=== PATIENT | female | born 1980 | race African-American/Black ===

== ENCOUNTER 2017-08-08 20:57 | Emergency (ER) | payer SELFPAY ==
[~2017-08-08] VITALS: Ht 165.1 cm; Wt 70.3 kg
[~2017-08-08 20:57] MED LIST: ALBUTEROL SULF8.5 GM INH; AZITHROMYCIN250 MG ORAL; DOXYCYCLINE MO100 MG PO; PREDNISONE20 MG ORAL
[2017-08-08] MEDS ORDERED: ZYRTEC10 MG ORAL (21:05)
[2017-08-08 21:48] LABS: APPEARANCE,URINE CLOUDY; KETONES,URINE 1+ (NEGATIVE); LEUKOCYTE ESTERASE ,URINE 3+ (NEGATIVE); NITRITE,URINE NEGATIVE (NEGATIVE); PH,URINE 5 (4.5-8.0); PROTEIN,URINE 1+ (NEGATIVE); UROBILINOGEN,URINE 1 MG/DL (0.0-1.0)
[2017-08-08 21:57] LABS: BACTERIA,URINE MANY /HPF; SQUAMOUS EPITHELIAL CELL,UR MANY /LPF (NONE/OCC); WBC,URINE 20-30 /HPF (0 - 2)
[2017-08-08] MEDS ORDERED: METRONIDAZOLE500 MG ORAL (22:04)
--- NOTE | 2017-08-08 22:05 | Emergency Room Report ---
History of Present Illness General Chief Complaint: Vaginal Source: Patient Present Illness [facility] This is a 36-year-old female with no past medical history. She presents with chief complaint of vaginal bleeding. Has been spotting for the last 2 weeks. He also has a yellowish discharge his been ongoing for the same amount of time. Discharge first rectal bleeding. She doesn't think that she is because she has a tubal ligation. No nausea no vomiting. Normal menstrual period. No urinary complaint. No history of STDs. She is in a monogamous relationship with her . Allergies: Coded Allergies: No Known Allergies (Unverified , 10/08/12) Patient History Past Medical History: see triage record, old chart reviewed Past Surgical History: other - Tubal ligation Pertinent Family History: none Social History: Denies: smoking Last Menstrual Period: 07/06/17 Now: No : 0 Para: 0 Immunizations: other Reviewed Nursing Documentation: PMH: Agreed, PSxH: Agreed Nursing Documentation-PMH Past Medical History: No Stated History Review of Systems Eye: Denies: eye pain, blurred vision ENT: Denies: ear pain, nose congestion, throat swelling Respiratory: Denies: cough, shortness of breath Cardiovascular: Denies: chest pain, palpitations Gastrointestinal: Denies: abdominal pain, diarrhea, nausea, vomiting Genitourinary: Reports: discharge, vag bleed/dc Musculoskeletal: Denies: back pain, joint pain Skin: Denies: rash Neurological: Denies: headache, numbness Endocrine: Denies: increased thirst, increased urine Hematologic/Lymphatic: Denies: easy bruising All Other Systems: negative except mentioned in HPI Physical Exam Vital Signs Date Time Temp Pulse Resp B/P (MAP) Pulse Ox O2 Delivery O2 Flow Rate FiO2 08/08/17 21:02 97.9 86 14 129/79 100 Room Air vitals normal Sp02 EP Interpretation: reviewed, normal General Appearance: well appearing, no apparent distress, alert Head: normocephalic, atraumatic Eyes: bilateral eye PERRL, bilateral eye EOMI ENT: hearing grossly normal, normal pharynx Neck: full range of motion, supple, no meningismus Respiratory: chest non-tender, lungs clear, normal breath sounds Cardiovascular #1: regular rate, rhythm, no murmur Gastrointestinal: normal bowel sounds, non tender, no mass, no organomegaly, no bruit, non-distended Genitourinary: other - 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 Normal external exam. Internal exam showed yellowish discharge. There is irritation to the cervix with scant bleeding. No cervical motion tenderness. No adnexal tenderness. Musculoskeletal: back normal, gait/station normal, normal range of motion Psychiatric: mood/affect normal Skin: warm/dry Medical Decision Making Diagnostic Impression: Primary Impression: Bacterial vaginosis ER Course Patient with vaginal spotting probably secondary to severe bacterial vaginosis infection. I suspect this also caused bacteria in the urine. She has no symptom of a urinary tract infection. We'll discharge home. Last Vital Signs Date Time Temp Pulse Resp B/P (MAP) Pulse Ox O2 Delivery O2 Flow Rate FiO2 08/08/17 21:02 97.9 86 14 129/79 100 Room Air Status: improved Disposition: HOME, SELF-CARE Condition: Stable Scripts Metronidazole* (FLAGYL*) 500 Mg Tablet 500 MG ORAL BID, #14 TAB Prov: YESSI CALDWELL M.D. 08/08/17 Referrals: NON PHYSICIAN (PCP) Additional Instructions: Followup with your DrYun in 7 days. Return if symptom worsen. Recommend routine mammogram and Pap smear. YESSI CALDWELL M.D. Aug 08, 2017 22:05
[2017-08-08 22:08] VITALS: BP 129/79
== END 2017-08-08 22:08 | disposition home or self-care (01) ==
LOC: EMR 21:30
DX: N76.0 Acute vaginitis (principal); B96.89 Other specified bacterial agents as the cause of diseases classified elsewhere
CPT/HCPCS: 81003; 81025; 87086; 87210; 99284